=== PATIENT | male | born 1990 | race Hispanic/Latino ===

== ENCOUNTER 2022-11-19 20:38 | Emergency (ER) | payer OTHER ==
[~2022-11-19] VITALS: Ht 182.9 cm; Wt 97.1 kg
[2022-11-19] MEDS ORDERED: KETOROLAC 30MG VIAL (30MG/ML) ONE (21:59)
[2022-11-19] MEDS ORDERED: KETOROLAC 30MG VIAL (30MG/ML) IM ONE (22:00)
[2022-11-19] MEDS ORDERED: CEPH500B PO (23:32)
[2022-11-19] MEDS ORDERED: CEPHALEXIN 500 MG CAPSULE ONE (23:41)
[2022-11-19 23:46] VITALS: BP 132/72
[2022-11-20] MEDS ORDERED: CEPHALEXIN 500 MG CAPSULE PO ONE
== END 2022-11-20 00:04 | disposition home or self-care (01) ==
LOC: EDH 20:38
DX: S69.81XA Other specified injuries of right wrist, hand and finger(s), initial encounter (principal); Z98.890 Other specified postprocedural states; X58.XXXA Exposure to other specified factors, initial encounter; Y93.89 Activity, other specified; Y92.89 Other specified places as the place of occurrence of the external cause; Y99.8 Other external cause status
CPT/HCPCS: 99283; 73140; 96372; J1885

== ENCOUNTER 2022-12-01 19:29 | Inpatient (IN) | payer OTHER ==
[~2022-12-01] VITALS: Ht 180.3 cm; Wt 94.7 kg
[~2022-12-01 19:29] MED LIST: CEPH500B PO
[2022-12-01] MEDS ORDERED: VANCOMYCIN 1G/250ML KIT 250 ML IV ONE (20:47)
[2022-12-01] MEDS ORDERED: ZOSYN 3.375GM +NS 50ML IVPB ONE (21:00)
[2022-12-01] MEDS ORDERED: VANCOMYCIN 1G VIAL IVPB ONE (21:00)
[2022-12-01] MEDS ORDERED: 0.9%NACL 1000ML 1,000 ML IV ONE (21:00)
[2022-12-01 21:18] LABS: BASOPHILS % (AUTO) 0.8 % (0.0-5.0); EOSINOPHILS % (AUTO) 2.4 % (0.0-8.0); HEMATOCRIT 45.4 % (42-54); LYMPHOCYTES % (AUTO) 48.1 % (21.0-51.0); MEAN CORPUSCULAR HEMOGLOBIN 28.7 pg (27.0-33.0); MEAN CORPUSCULAR HGB CONC 32.8 g/dL (32.0-36.0); MEAN CORPUSCULAR VOLUME 87.3 fL (79-99); MONOCYTES % (AUTO) 6.5 % (3.0-13.0); PLATELET COUNT (AUTO) 323 K/uL (130-400); RED CELL DISTRIBUTION WIDTH 13.1 % (11.0-15.5); WHITE BLOOD COUNT (AUTO) 8.8 K/uL (4.8-10.8)
[2022-12-01 21:32] LABS: CREATININE 1.3 mg/dL (0.5-1.5); POTASSIUM 4.1 mmol/L (3.5-5.1)
[2022-12-01 21:37] LABS: ALBUMIN 4.8 g/dL (3.5-5.0); TOTAL PROTEIN, SERUM 8.8 g/dL (6.0-8.3)
[2022-12-01] MEDS ORDERED: LIDOCAINE HCL-MPF 1% 2ML VIAL IV PRN (22:00)
[2022-12-01] MEDS ORDERED: ONDANSETRON 4MG INJ IV PRN (22:00)
[2022-12-01] MEDS ORDERED: VANCOMYCIN PROTOCOL PER PHARMACY IV PRN (22:00)
[2022-12-01] MEDS ORDERED: MORPHINE 4 MG SYG IV PRN (22:00)
[2022-12-01] MEDS ORDERED: MORPHINE 2 MG SYG IV PRN (22:00)
[2022-12-01] MEDS ORDERED: ACETAMINOPHEN 325 MG TAB PO PRN (22:00)
[2022-12-01] MEDS: LACTATED RINGERS 1000ML 1,000 ML IV SCH (22:00)
[2022-12-01] MEDS ORDERED: MAGNESIUM 2GM PREMIX 50ML 50 ML IV PRN (22:00)
[2022-12-02] VITALS (7 sets, daily range): BP systolic 115–137; BP diastolic 62–89
[2022-12-02] MEDS: ZOSYN 3.375GM+NS 50ML 50 ML IVPB SCH ×3 (04:55→20:11)
[2022-12-02 06:39] LABS: BASOPHILS % (AUTO) 0.6 % (0.0-5.0); EOSINOPHILS % (AUTO) 3.7 % (0.0-8.0); HEMATOCRIT 42.6 % (42-54); LYMPHOCYTES % (AUTO) 42.4 % (21.0-51.0); MEAN CORPUSCULAR HEMOGLOBIN 29.3 pg (27.0-33.0); MEAN CORPUSCULAR HGB CONC 33.1 g/dL (32.0-36.0); MEAN CORPUSCULAR VOLUME 88.4 fL (79-99); MONOCYTES % (AUTO) 8.1 % (3.0-13.0); NEUTROPHILS % (AUTO) 44.9 % (40.0-77.0); PLATELET COUNT (AUTO) 283 K/uL (130-400); RED BLOOD CELL COUNT(AUTO) 4.82 MIL/uL (4.50-6.20); WHITE BLOOD COUNT (AUTO) 6.6 K/uL (4.8-10.8)
[2022-12-02 06:56] LABS: INR 1.12 (0.85-1.15); PROTHROMBIN TIME 12.1 SEC (9.6-11.6)
[2022-12-02 06:57] LABS: PARTIAL THROMBOPLASTIN TIME 45.5 SEC (26.3-35.5)
[2022-12-02 07:23] LABS: CREATININE 1.2 mg/dL (0.5-1.5); MAGNESIUM 2.1 mg/dL (1.80-2.40); POTASSIUM 3.4 mmol/L (3.5-5.1)
[2022-12-02] MEDS: FAMOTIDINE 20MG VIAL IV SCH ×2 (09:01→20:11)
[2022-12-02] MEDS: ENOXAPARIN SODIUM 40 MG/0.4 ML SYRINGE SQ SCH (09:01)
[2022-12-02] MEDS: LACTATED RINGERS 1000ML 1,000 ML IV SCH ×2 (09:09→18:37)
[2022-12-02] MEDS ORDERED: VANCOMYCIN 2GM/500 ML BAG 500 ML IV ONE (09:30)
[2022-12-02] MEDS ORDERED: COMPOUND IV REFRIGERATED 1 EACH IVSOLN MISC PRN (10:00)
[2022-12-02] MEDS: VANCOMYCIN 1.25 GM/250 ML BAG 250 ML IV SCH (20:12)
[2022-12-03 04:00] VITALS: BP 135/75
[2022-12-03] MEDS: ZOSYN 3.375GM+NS 50ML 50 ML IVPB SCH ×2 (05:59→14:11)
[2022-12-03] MEDS: LACTATED RINGERS 1000ML 1,000 ML IV SCH ×3 (06:24→21:21)
[2022-12-03 07:30] VITALS: BP 140/84
[2022-12-03] MEDS: ENOXAPARIN SODIUM 40 MG/0.4 ML SYRINGE SQ SCH (09:27)
[2022-12-03] MEDS: FAMOTIDINE 20MG VIAL IV SCH ×2 (09:27→22:51)
[2022-12-03] MEDS: VANCOMYCIN 1.25 GM/250 ML BAG 250 ML IV SCH (09:28)
[2022-12-03 11:00] VITALS: BP 133/74
[2022-12-03] MEDS: VANCOMYCIN 1.5 GM/250 ML BAG 250 ML IV SCH ×2 (11:49→22:51)
[2022-12-03 16:00] VITALS: BP 136/86
[2022-12-03] MEDS: POTASSIUM CHLORIDE 20MEQ/100ML 100 ML IV PRN (18:02)
[2022-12-03 20:08] VITALS: BP 137/84
[2022-12-03 23:56] VITALS: BP 119/65
[2022-12-04] MEDS: ZOSYN 3.375GM+NS 50ML 50 ML IVPB SCH ×4 (01:52→23:52)
[2022-12-04 04:55] VITALS: BP 132/79
[2022-12-04] MEDS: LACTATED RINGERS 1000ML 1,000 ML IV SCH ×3 (07:45→16:35)
[2022-12-04 07:54] VITALS: BP 133/77
[2022-12-04 08:08] LABS: BASOPHILS % (AUTO) 0.7 % (0.0-5.0); HEMATOCRIT 43.4 % (42-54); LYMPHOCYTES % (AUTO) 46.5 % (21.0-51.0); MEAN CORPUSCULAR HGB CONC 32.9 g/dL (32.0-36.0); MONOCYTES % (AUTO) 5.3 % (3.0-13.0); NEUTROPHILS % (AUTO) 45.3 % (40.0-77.0); PLATELET COUNT (AUTO) 275 K/uL (130-400); RED BLOOD CELL COUNT(AUTO) 4.93 MIL/uL (4.50-6.20); WHITE BLOOD COUNT (AUTO) 5.5 K/uL (4.8-10.8)
[2022-12-04 08:19] LABS: INR 0.93 (0.85-1.15); PROTHROMBIN TIME 10.1 SEC (9.6-11.6)
[2022-12-04 08:20] LABS: PARTIAL THROMBOPLASTIN TIME 29.8 SEC (26.3-35.5)
[2022-12-04 08:22] LABS: CREATININE 1.1 mg/dL (0.5-1.5); PHOSPHORUS 2.7 mg/dL (2.5-4.9); POTASSIUM 3.6 mmol/L (3.5-5.1)
[2022-12-04] MEDS: FAMOTIDINE 20MG VIAL IV SCH ×2 (11:11→20:51)
[2022-12-04] MEDS: VANCOMYCIN 1.5 GM/250 ML BAG 250 ML IV SCH ×2 (11:13→21:40)
[2022-12-04 11:42] VITALS: BP 135/84
[2022-12-04] MEDS: ENOXAPARIN SODIUM 40 MG/0.4 ML SYRINGE SQ SCH (15:02)
[2022-12-04 16:00] VITALS: BP 121/87
[2022-12-04 20:25] VITALS: BP 118/60
[2022-12-04 23:43] VITALS: BP 126/82
[2022-12-05] MEDS: LACTATED RINGERS 1000ML 1,000 ML IV SCH ×4 (01:57→23:24)
[2022-12-05 04:17] VITALS: BP 102/72
[2022-12-05 05:26] LABS: BASOPHILS % (AUTO) 0.8 % (0.0-5.0); EOSINOPHILS % (AUTO) 3.8 % (0.0-8.0); HEMATOCRIT 43.1 % (42-54); LYMPHOCYTES % (AUTO) 45.5 % (21.0-51.0); MEAN CORPUSCULAR HEMOGLOBIN 28.7 pg (27.0-33.0); MEAN CORPUSCULAR HGB CONC 32.9 g/dL (32.0-36.0); MEAN CORPUSCULAR VOLUME 87.1 fL (79-99); MONOCYTES % (AUTO) 6.7 % (3.0-13.0); PLATELET COUNT (AUTO) 298 K/uL (130-400); RED BLOOD CELL COUNT(AUTO) 4.95 MIL/uL (4.50-6.20); RED CELL DISTRIBUTION WIDTH 12.9 % (11.0-15.5); WHITE BLOOD COUNT (AUTO) 6.2 K/uL (4.8-10.8)
[2022-12-05 05:36] LABS: CREATININE 1.2 mg/dL (0.5-1.5); POTASSIUM 3.3 mmol/L (3.5-5.1)
[2022-12-05] MEDS: ZOSYN 3.375GM+NS 50ML 50 ML IVPB SCH ×3 (07:00→23:13)
[2022-12-05 08:00] VITALS: BP 144/78
[2022-12-05] MEDS: FAMOTIDINE 20MG VIAL IV SCH ×2 (09:19→21:15)
[2022-12-05] MEDS: VANCOMYCIN 1.5 GM/250 ML BAG 250 ML IV SCH ×2 (09:20→21:16)
[2022-12-05] MEDS: POTASSIUM CHLORIDE 20MEQ/100ML 100 ML IV PRN (09:21)
[2022-12-05 11:56] VITALS: BP 133/66
[2022-12-05 16:00] VITALS: BP 141/79
[2022-12-05 19:00] VITALS: BP 120/79
[2022-12-06] VITALS (27 sets, daily range): BP systolic 100–148; BP diastolic 55–92
[2022-12-06] MEDS: ZOSYN 3.375GM+NS 50ML 50 ML IVPB SCH ×3 (06:30→20:57)
[2022-12-06] MEDS: LACTATED RINGERS 1000ML 1,000 ML IV SCH ×2 (06:30→13:42)
[2022-12-06 06:41] LABS: BASOPHILS % (AUTO) 0.6 % (0.0-5.0); EOSINOPHILS % (AUTO) 2.3 % (0.0-8.0); HEMATOCRIT 47.3 % (42-54); LYMPHOCYTES % (AUTO) 49.7 % (21.0-51.0); MEAN CORPUSCULAR HEMOGLOBIN 29.2 pg (27.0-33.0); MEAN CORPUSCULAR HGB CONC 32.8 g/dL (32.0-36.0); MEAN CORPUSCULAR VOLUME 89.2 fL (79-99); MONOCYTES % (AUTO) 6.9 % (3.0-13.0); NEUTROPHILS % (AUTO) 40.3 % (40.0-77.0); PLATELET COUNT (AUTO) 307 K/uL (130-400); RED CELL DISTRIBUTION WIDTH 13.1 % (11.0-15.5); WHITE BLOOD COUNT (AUTO) 8.7 K/uL (4.8-10.8)
[2022-12-06 06:50] LABS: CREATININE 1.5 mg/dL (0.5-1.5)
[2022-12-06] MEDS ORDERED: ONDANSETRON 4MG INJ ONE (07:35)
[2022-12-06] MEDS ORDERED: MIDAZOLAM HCL 1 MG/ML 2ML VIAL ONE (07:35)
[2022-12-06] MEDS ORDERED: LIDOCAINE PF 100MG/5ML (2%) SYRINGE 5ML ONE (07:35)
[2022-12-06] MEDS ORDERED: DEXAMETHASONE SOD PHOSPHATE 10MG/ML 1ML VIAL ONE (07:35)
[2022-12-06] MEDS ORDERED: PROPOFOL 10 MG/ML 20ML VIAL IV ONE (07:35)
[2022-12-06] MEDS ORDERED: FENTANYL CITRATE PF 50 MCG/1 ML 2ML VIAL ONE (07:36)
[2022-12-06] MEDS ORDERED: EPHEDRINE SULFATE 50 MG/ML AMPULE ONE (08:35)
[2022-12-06] MEDS: VANCOMYCIN 1.5 GM/250 ML BAG 250 ML IV SCH ×2 (09:00→20:57)
[2022-12-06] MEDS: FAMOTIDINE 20MG VIAL IV SCH ×2 (09:00→20:57)
[2022-12-06] MEDS ORDERED: MEPERIDINE-PF 25 MG/ML SYG ONE ×2 (09:20→09:30)
[2022-12-07] VITALS: BP 136/86
[2022-12-07] MEDS: ACETAMINOPHEN 325 MG TAB PO PRN ×2 (00:23→16:08)
[2022-12-07 04:00] VITALS: BP 132/64
[2022-12-07] MEDS: LACTATED RINGERS 1000ML 1,000 ML IV SCH ×4 (04:31→20:41)
[2022-12-07] MEDS: ZOSYN 3.375GM+NS 50ML 50 ML IVPB SCH ×3 (04:31→20:40)
[2022-12-07 08:00] VITALS: BP 135/77
[2022-12-07] MEDS: VANCOMYCIN 1.5 GM/250 ML BAG 250 ML IV SCH ×2 (09:45→20:41)
[2022-12-07] MEDS: FAMOTIDINE 20MG VIAL IV SCH ×2 (09:45→20:41)
[2022-12-07 12:00] VITALS: BP 130/76
[2022-12-07 16:00] VITALS: BP 163/82
[2022-12-07 20:00] VITALS: BP 117/71
[2022-12-08] VITALS (7 sets, daily range): BP systolic 115–130; BP diastolic 65–87
[2022-12-08] MEDS: ZOSYN 3.375GM+NS 50ML 50 ML IVPB SCH ×3 (05:55→21:13)
[2022-12-08 09:19] LABS: EOSINOPHILS % (AUTO) 2.1 % (0.0-8.0); LYMPHOCYTES % (AUTO) 38.2 % (21.0-51.0); MEAN CORPUSCULAR HEMOGLOBIN 29.1 pg (27.0-33.0); MEAN CORPUSCULAR HGB CONC 33.5 g/dL (32.0-36.0); MEAN CORPUSCULAR VOLUME 86.9 fL (79-99); MONOCYTES % (AUTO) 6.8 % (3.0-13.0); NEUTROPHILS % (AUTO) 51.6 % (40.0-77.0); PLATELET COUNT (AUTO) 281 K/uL (130-400); RED BLOOD CELL COUNT(AUTO) 4.95 MIL/uL (4.50-6.20); RED CELL DISTRIBUTION WIDTH 13.2 % (11.0-15.5); WHITE BLOOD COUNT (AUTO) 7.3 K/uL (4.8-10.8)
[2022-12-08 09:39] LABS: CREATININE 1.2 mg/dL (0.5-1.5); POTASSIUM 3.7 mmol/L (3.5-5.1)
[2022-12-08] MEDS: FAMOTIDINE 20MG VIAL IV SCH ×2 (09:56→21:18)
[2022-12-08] MEDS: VANCOMYCIN 1.5 GM/250 ML BAG 250 ML IV SCH ×2 (09:57→21:14)
[2022-12-08] MEDS: ALPRAZOLAM 0.25 MG TABLET PO PRN (17:01)
[2022-12-08] MEDS: ACETAMINOPHEN 325 MG TAB PO PRN (22:40)
[2022-12-09 04:00] VITALS: BP 103/55
[2022-12-09] MEDS: ZOSYN 3.375GM+NS 50ML 50 ML IVPB SCH (04:59)
[2022-12-09 08:00] VITALS: BP 121/70
[2022-12-09] MEDS: VANCOMYCIN 1.5 GM/250 ML BAG 250 ML IV SCH (09:14)
[2022-12-09] MEDS: FAMOTIDINE 20MG VIAL IV SCH (09:14)
[2022-12-09 11:16] VITALS: BP 122/77
[2022-12-09] MEDS ORDERED: CEFAZOLIN SODIUM 2 GM VIAL IVPB SCH (13:00)
[2022-12-09] MEDS ORDERED: CEFU500T67 PO (15:55)
[2022-12-09 16:00] VITALS: BP 121/82
[2022-12-09] MEDS: ALPRAZOLAM 0.25 MG TABLET PO PRN (16:34)
[2022-12-09] MEDS: ACETAMINOPHEN 325 MG TAB PO PRN (16:35)
== END 2022-12-09 17:45 | disposition home or self-care (01) | DRG 516 ==
LOC: EDH 19:29 → EDHIP 19:30 → 3DH 12-02 00:13
PROVIDERS: ADMIT Hospitalist; ATTEND Hospitalist
PROC: 0PBT0ZZ Excision of Right Finger Phalanx, Open Approach (ICD-10-PCS; principal; 2022-12-06 07:45)
DX: M86.8X4 Other osteomyelitis, hand (principal); L02.511 Cutaneous abscess of right hand; L03.113 Cellulitis of right upper limb; Z20.822 Contact with and (suspected) exposure to COVID-19
CPT/HCPCS: 36415; 73130; 73140; 80048; 80053; 80202; 82948; 83605; 83735; 84100; 84145; 85025; 85610; 85651; 85730; 86140; 86850; 86900; 86901; 87040; 87070; 87076; 87077; 87186; 87635; 93005; 96365; 96368; G0378; J1100; J1650; J2001; J2175; J2250; J2270; J2405; J2543; J2704; J3010; J3370; J3480; J3490; J7030; J7120